=== PATIENT | male | born 1925 | race Caucasian/White ===

== ENCOUNTER → 2016-12-27 | Outpatient (CLI) | payer MEDICARE ==
[~2016-12-27] VITALS: Ht 177.8 cm; Wt 81.8 kg
[~2016-12-27] MED LIST: DEPO-TESTOS200 MG/M1 IM; LIPITOR 40MG TA40 MG PO
[2016-12-27 10:56] VITALS: BP 122/68
== END ==
LOC: AMSURD 09:28
DX: I49.3 Ventricular premature depolarization (principal)